=== PATIENT | female | born 1995 | race Caucasian/White ===

== ENCOUNTER 2018-05-03 11:58 | Emergency (ER) | payer OTHER ==
[2018-05-03 12:07] VITALS: BP 153/106; PULSE 101; RESP 18; TEMP 98.2
== END 2018-05-03 12:29 | disposition home or self-care (01) ==
LOC: EC 11:58
DX: Z02.89 Encounter for other administrative examinations (principal)

== ENCOUNTER 2020-11-18 18:35 | Emergency (ER) | payer OTHER ==
--- NOTE | 2020-11-18 19:26 | ED ---
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 Patient has no open wounds or sores. Patient is not 100% sure got in her eye. Patient denies any other problems at this time. Patient has no history of hepatitis or AIDS patient does not know if he had a hepatitis B vaccination - Related Data Home Medications Medication Instructions Recorded Confirmed No Known Home Medications 05/03/18 05/03/18 Allergies Allergy/AdvReac Type Severity Reaction Status Date / Time Penicillins Allergy Rash/Hives Verified 05/03/18 12:15 Review of Systems ROS Statement: Those systems with pertinent positive or pertinent negative responses have been documented in the HPI. ROS Other: All systems not noted in ROS Statement are negative. Past Medical History Past Medical History: No Reported History History of Any Multi-Drug Resistant Organisms: None Reported Past Surgical History: No Surgical Hx Reported Past Psychological History: No Psychological Hx Reported Past Alcohol Use History: None Reported Past Drug Use History: None Reported General Exam - General Exam Comments Initial Comments: GENERAL Patient is well-developed and well-nourished. Patient is in mild distress. EYES Patient's pupils are equal and round. Extraocular motion is intact. Conjunctiva is not red or irritated. SKIN Patient has no obvious open wounds or sores. NEURO The patient is alert and oriented 3 PYSCH Patient has normal interpersonal interactions. MUSCULOSKELETAL All 4 extremities have full range of motion. Limitations: no limitations Medical Decision Making - Lab Data Lab Results 11/18/20 11/18/20 Range/Units 18:52 18:52 Hep Bs Antigen Nonreactive (Nonreactive) Hep Bs Antibody Reactive A (Nonreactive) Hep C IgG Ab Nonreactive (Nonreactive) HIV-1 Antibody Non-Reactive (Non-Reactive) HIV Ag/Ab Interpret HIV p24 Antibody Non-Reactive (Non-Reactive) HIV-2 Antibody Non-Reactive (Non-Reactive) HIV P24 Antigen Non-Reactive (Non-Reactive) Disposition Clinical Impression: Exposure to body fluid Disposition: HOME SELF-CARE Instructions (If sedation given, give patient instructions): Body Substance Exposure (ED) Is patient prescribed a controlled substance at d/c from ED?: No Referrals: None,Stated [Primary Care Provider] - 1-2 days
[2020-11-19 07:37] LABS: Hepatitis B Surface Antibody Reactive (Nonreactive); Hepatitis B Surface Antigen Nonreactive (Nonreactive); Hepatitis C IgG Antibody Nonreactive (Nonreactive)
[2020-11-19 09:01] LABS: HIV 2 AB Non-Reactive (Non-Reactive); HIV AB P24 Non-Reactive (Non-Reactive); HIV P24 AG Non-Reactive (Non-Reactive)
== END 2020-11-18 19:13 | disposition home or self-care (01) ==
LOC: EC 18:35
DX: Z77.21 Contact with and (suspected) exposure to potentially hazardous body fluids (principal)
CPT/HCPCS: 36415; 86706; 86803; 87340; 87390; 99283

== ENCOUNTER 2021-08-06 19:47 | Inpatient (IN) | payer BC ==
[2021-08-06] MEDS ORDERED: methylPREDNISolone SOD SUCCI 125 MG/2 ML VIAL IV STA (20:22)
[2021-08-06] MEDS ORDERED: MAGNESIUM SULFATE-D5W PMX 1 GM in DEXTROSE/WATER 1 100ML.BAG IVPB STA (20:22)
[2021-08-06] MEDS ORDERED: ALBUTEROL NEBULIZED 2.5 MG/3 ML INHALATION STA (20:22)
[2021-08-06] MEDS ORDERED: SODIUM CHLORIDE 0.9% 1,000 ML IV STA (20:22)
[2021-08-06] MEDS ORDERED: IPRATROPIUM 0.5 MG/2.5 ML NEBU INHALATION STA (20:22)
--- NOTE | 2021-08-06 21:00 | ED ---
General Adult HPI - General Chief complaint: Shortness of Breath Stated complaint: Difficulty Breathing, Cough Time Seen by Provider: 08/06/21 20:19 Source: patient, RN notes reviewed, old records reviewed Mode of arrival: ambulatory - History of Present Illness Initial comments: 26-year-old female history of asthma presents for evaluation of increased cough and dyspnea. Patient's symptoms initially began yesterday. She had used albuterol earlier this morning and then her symptoms improved. About 90 minutes prior to arrival she had worsening dyspnea hasn't taken her rescue inhaler as well as vials of albuterol prior to arrival with only minimal improvement. No fever. She reports some chest pain which is worse with cough. No lower extremity pain or swelling. No recent sick contacts. No known triggers. - Related Data Home Medications Medication Instructions Recorded Confirmed Elinest 0.3-30mg-Mcg Tab 1 tab PO DAILY 08/06/21 08/06/21 Allergies Allergy/AdvReac Type Severity Reaction Status Date / Time Penicillins Allergy Rash/Hives Verified 08/06/21 22:26 Review of Systems ROS Statement: Those systems with pertinent positive or pertinent negative responses have been documented in the HPI. ROS Other: All systems not noted in ROS Statement are negative. Past Medical History Past Medical History: Asthma Additional Past Medical History / Comment(s): asthma to bronchitis, heart murmur History of Any Multi-Drug Resistant Organisms: None Reported Past Surgical History: No Surgical Hx Reported Past Psychological History: Anxiety Smoking Status: Never smoker Past Alcohol Use History: None Reported Past Drug Use History: None Reported General Exam General appearance: alert, in no apparent distress Head exam: Present: atraumatic, normocephalic Eye exam: Present: normal appearance, PERRL ENT exam: Present: normal exam Neck exam: Absent: tenderness, meningismus Respiratory exam: Present: respiratory distress, rhonchi, accessory muscle use, decreased breath sounds, other (Bronchospastic cough) Cardiovascular Exam: Present: normal rhythm, tachycardia GI/Abdominal exam: Present: soft. Absent: distended, tenderness, guarding Extremities exam: Present: normal inspection, normal capillary refill. Absent: pedal edema, calf tenderness Neurological exam: Present: alert, oriented X3, CN II-XII intact. Absent: motor sensory deficit Psychiatric exam: Present: anxious Skin exam: Present: warm, intact. Absent: cyanosis Course Vital Signs 08/06/21 08/06/21 08/06/21 19:54 20:30 20:34 Temperature 99.3 F Pulse Rate 162 H 160 H Respiratory 22 26 H 34 H Rate Blood Pressure 136/76 O2 Sat by Pulse 97 Oximetry 08/06/21 20:55 Temperature Pulse Rate 164 H Respiratory 32 H Rate Blood Pressure O2 Sat by Pulse Oximetry - Reevaluation(s) Reevaluation #1: 08/06/21 22:23 I did discuss case with Dr. Campbell regarding the arrhythmia and the possibility of atrial flutter with 21 conduction he does recommend verapamil IV 2.5 mg per dose for a total of 7.5 mg IV , if this does not work that he recommends amiodarone drip. Reevaluation #2: 08/06/21 22:[address] Cuello who will admit, he is aware of the ant iarrhythmic medications recommended by cardiology. EKG Findings - EKG Comments: EKG Findings:: EKG: Narrow complex tachycardia rate of 156, short ND interval versus atrial flutter QRS duration 74, QTC 379. Repeat EKG at 2057, no complex tachycardia rate of 158, possible atrial flutter with 21 conduction, QRS duration 75, QTC 388. Medical Decision Making - Medical Decision Making 26-year-old female presenting with severe dyspnea, patient is in distress upon arrival with minimal air entry, bronchospastic cough. She is tachycardic 150- 170. She does maintain her oxygenation. She has a respiratory rate of 40. She's given albuterol, Atrovent, IV steroids, IV magnesium and IV fluids. Her respiratory status does improve while emergency department but she remains in a sterile complex tachycardia at a rate in the 150s. Her workup including CBC, CMP, d-dimer and troponin is unremarkable. Her viral swabs are pending. Her chest x-ray is negative for pneumothorax or acute findings. She will be admitted to [facility] monitored on telemetry, treated for asthma exacerbation and arrhythmia. - Lab Data Result diagrams: 08/06/21 20:46 08/06/21 20:46 Lab Results 08/06/21 08/06/21 08/06/21 Range/Units 20:46 20:46 20:46 WBC 10.5 (3.8-10.6) k/uL RBC 4.22 (3.80-5.40) m/uL Hgb 13.6 (11.4-16.0) gm/dL Hct 40.2 (34.0-46.0) % MCV 95.1 (80.0-100.0) fL MCH 32.1 (25.0-35.0) pg MCHC 33.8 (31.0-37.0) g/dL RDW 12.5 (11.5-15.5) % Plt Count 280 (150-450) k/uL MPV 8.1 Neutrophils % 88 % Lymphocytes % 6 % Monocytes % 5 % Eosinophils % 0 % Basophils % 0 % Neutrophils # 9.3 H (1.3-7.7) k/uL Lymphocytes # 0.6 L (1.0-4.8) k/uL Monocytes # 0.5 (0-1.0) k/uL Eosinophils # 0.0 (0-0.7) k/uL Basophils # 0.0 (0-0.2) k/uL PT 10.6 (9.0-12.0) sec INR 1.0 (<1.2) APTT 24.6 (22.0-30.0) sec D-Dimer 0.31 (<0.60) mg/L FEU Sodium 136 L (137-145) mmol/L Potassium 3.6 (3.5-5.1) mmol/L Chloride 103 (98-107) mmol/L Carbon Dioxide 22 (22-30) mmol/L Anion Gap 11 mmol/L BUN 9 (7-17) mg/dL Creatinine 0.72 (0.52-1.04) mg/dL Est GFR (CKD-EPI)AfAm >90 (>60 ml/min/1.73 sqM) Est GFR (CKD-EPI)NonAf >90 (>60 ml/min/1.73 sqM) Glucose 121 H (74-99) mg/dL Plasma Lactic Acid Benjamin (0.7-2.0) mmol/L Calcium 8.8 (8.4-10.2) mg/dL Magnesium 1.9 (1.6-2.3) mg/dL Total Bilirubin 0.2 (0.2-1.3) mg/dL AST 25 (14-36) U/L ALT 20 (4-34) U/L Alkaline Phosphatase 56 (38-126) U/L Troponin I (0.000-0.034) ng/mL Total Protein 7.1 (6.3-8.2) g/dL Albumin 4.3 (3.5-5.0) g/dL 08/06/21 08/06/21 Range/Units 20:46 20:46 WBC (3.8-10.6) k/uL RBC (3.80-5.40) m/uL Hgb (11.4-16.0) gm/dL Hct (34.0-46.0) % MCV (80.0-100.0) fL MCH (25.0-35.0) pg MCHC (31.0-37.0) g/dL RDW (11.5-15.5) % Plt Count (150-450) k/uL MPV Neutrophils % % Lymphocytes % % Monocytes % % Eosinophils % % Basophils % % Neutrophils # (1.3-7.7) k/uL Lymphocytes # (1.0-4.8) k/uL Monocytes # (0-1.0) k/uL Eosinophils # (0-0.7) k/uL Basophils # (0-0.2) k/uL PT (9.0-12.0) sec INR (<1.2) APTT (22.0-30.0) sec D-Dimer (<0.60) mg/L FEU Sodium (137-145) mmol/L Potassium (3.5-5.1) mmol/L Chloride (98-107) mmol/L Carbon Dioxide (22-30) mmol/L Anion Gap mmol/L BUN (7-17) mg/dL Creatinine (0.52-1.04) mg/dL Est GFR (CKD-EPI)AfAm (>60 ml/min/1.73 sqM) Est GFR (CKD-EPI)NonAf (>60 ml/min/1.73 sqM) Glucose (74-99) mg/dL Plasma Lactic Acid Benjamin 2.5 H* (0.7-2.0) mmol/L Calcium (8.4-10.2) mg/dL Magnesium (1.6-2.3) mg/dL Total Bilirubin (0.2-1.3) mg/dL AST (14-36) U/L ALT (4-34) U/L Alkaline Phosphatase (38-126) U/L Troponin I <0.012 (0.000-0.034) ng/mL Total Protein (6.3-8.2) g/dL Albumin (3.5-5.0) g/dL Critical Care Time Critical Care Time: Yes Total Critical Care Time: 35 Disposition Clinical Impression: Asthma with acute exacerbation, Tachyarrhythmia, Atrial flutter Disposition: ADMITTED IP TO THIS [facility] Condition: Stable Is patient prescribed a controlled substance at d/c from ED?: No Referrals: Osman Boggs MD [Primary Care Provider] - 1-2 days Time of Disposition: 22:25
[2021-08-06 21:06] LABS: ALT 20 U/L (4-34); AST 25 U/L (14-36); African American GFR (CKD) >90 (>60 ml/min/1.73 sqM); Albumin 4.3 g/dL (3.5-5.0); Alkaline Phosphatase 56 U/L (38-126); Anion Gap 11 mmol/L; Blood Urea Nitrogen 9 mg/dL (7-17); Calcium 8.8 mg/dL (8.4-10.2); Carbon Dioxide 22 mmol/L (22-30); Chloride 103 mmol/L (98-107); Glucose 121 mg/dL (74-99); Magnesium 1.9 mg/dL (1.6-2.3); Non-African American GFR(CKD) >90 (>60 ml/min/1.73 sqM); Potassium 3.6 mmol/L (3.5-5.1); Sodium 136 mmol/L (137-145); Total Bilirubin 0.2 mg/dL (0.2-1.3); Total Protein 7.1 g/dL (6.3-8.2)
[2021-08-06 21:10] LABS: Basophils % (A) 0 %; Eosinophils % (A) 0 %; HCT 40.2 % (34.0-46.0); HGB 13.6 gm/dL (11.4-16.0); Lymphocytes # (A) 0.6 k/uL (1.0-4.8); Lymphocytes % (A) 6 %; MCH 32.1 pg (25.0-35.0); MCHC 33.8 g/dL (31.0-37.0); MCV 95.1 fL (80.0-100.0); Mean Platelet Volume 8.1; Monocytes # (A) 0.5 k/uL (0-1.0); Monocytes % (A) 5 %; Neutrophils # (A) 9.3 k/uL (1.3-7.7); Neutrophils % (A) 88 %; Platelet Count 280 k/uL (150-450); RBC 4.22 m/uL (3.80-5.40); RDW 12.5 % (11.5-15.5); WBC 10.5 k/uL (3.8-10.6)
[2021-08-06 21:18] LABS: Partial Thromboplastin Time 24.6 sec (22.0-30.0); Prothrombin Time 10.6 sec (9.0-12.0)
--- NOTE | 2021-08-06 21:40 | XR ---
EXAMINATION TYPE: XR chest 1V portable DATE OF EXAM: 08/06/2021 9:23 PM COMPARISON: None TECHNIQUE: XR chest 1V portable Portable AP radiograph of the chest. CLINICAL INDICATION:Female, 26 years old with history of danish; FINDINGS: Lungs/Pleura: There is no evidence of pleural effusion, focal consolidation, or pneumothorax. Pulmonary vascularity: Unremarkable. Heart/mediastinum: Cardiomediastinal silhouette is unremarkable. Musculoskeletal: No acute osseous pathology. IMPRESSION: No acute cardiopulmonary disease/process.
[2021-08-06] MEDS ORDERED: DILTIAZEM DRIP BOLUS FROM BAG 1 MG SOLN IV ONE ×2 (22:01→23:55)
[2021-08-06] MEDS ORDERED: VERAPAMIL 2.5 MG/ML 2 ML AMP IVP STA ×2 (22:11→22:49)
[2021-08-06] MEDS ORDERED: NALOXONE 0.4 MG/ML 1 ML VIAL IV PRN (22:13)
[2021-08-06] MEDS ORDERED: DILTIAZEM 125 MG in SODIUM CHLORIDE 0.9% 100 ML IV SCH ×2 (22:15→23:45)
[2021-08-06] MEDS ORDERED: ALBUTEROL NEBULIZED 2.5 MG/3 ML INHALATION PRN (22:15)
[2021-08-06] MEDS ORDERED: LORazepam 2 MG/ML INJ IV STA ×2 (22:28→22:49)
[2021-08-06] MEDS: SODIUM CHLORIDE 0.9% 1,000 ML IV SCH (23:03)
[2021-08-06] MEDS ORDERED: ADENOSINE 3 MG/ML 2 ML VIAL IVP STA ×2 (23:33→23:55)
[2021-08-07] MEDS ORDERED: ALBUTEROL HFA INHALER INHALATION PRN (00:13)
--- NOTE | 2021-08-07 01:32 | P.HPIM ---
History of Present Illness H&P Date: 08/06/21 Chief Complaint: Shortness of breath 26-year-old female with history of intermittent asthma Patient comes in due to sudden onset shortness of breath not responding to nebulizers at home she also felt that her heart was racing denies any associated chest pain dizziness lightheadedness nausea vomiting. 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 Denies any changes in her medications denies any new [id number] products denies any recent travel or hospitalization or trauma. Denies any cardiac history. In the ED she was found to have SVT case discussed with cardiac G initially was thought to be atrial flutter and recommended to start boluses of verapamil and then cardiology cold back and decided to attempt adenosine and then Cardizem drip Chest x-ray no acute pathology Blood work significant for lactic acidosis and hyponatremia Covid test positive, patient denies any upper respiratory infection like symptoms congestion or body aches fevers or chills Review of Systems Pertinent positives as noted in HPI. All other systems were reviewed and are negative Past Medical History Past Medical History: Asthma Additional Past Medical History / Comment(s): asthma to bronchitis, heart murmur History of Any Multi-Drug Resistant Organisms: None Reported Past Surgical History: No Surgical Hx Reported Past Psychological History: Anxiety Smoking Status: Never smoker Past Alcohol Use History: None Reported Past Drug Use History: None Reported - Past Family History Family Family Medical History: No Reported History Medications and Allergies Home Medications Medication Instructions Recorded Confirmed Type Elinest 0.3-30mg-Mcg Tab 1 tab PO DAILY 08/06/21 08/06/21 History Allergies Allergy/AdvReac Type Severity Reaction Status Date / Time Penicillins Allergy Rash/Hives Verified 08/06/21 22:26 Physical Exam Vitals: Vital Signs Temp Pulse Resp BP Pulse Ox 08/06/21 20:55 164 H 32 H 08/06/21 20:34 160 H 34 H 08/06/21 20:30 26 H 08/06/21 19:54 99.3 F 162 H 22 136/76 97 Intake and Output 08/06/21 08/06/21 08/06/21 06:59 14:59 22:59 Other: Weight 72.575 kg Constitutional: No acute distress, conversant, pleasant Eyes: Anicteric sclerae, moist conjunctiva, Pupils equal round reactive to light ENMT: NC/AT Oropharynx clear, no erythema, or exudates Neck: Supple, FROM, no masses, or JVD No carotid bruits No thyromegaly Lungs: Clear to auscultation Clear to percussion Normal respiratory effort, no accessory muscle use Cardiovascular: Heart tachycardia Systolic murmurs, no gallops, or rubs No peripheral edema Abdominal: Soft Nontender, no guarding, rebound or rigidity Abdomen moving with respiration Normoactive bowel sounds No hepatomegaly, No splenomegaly No palpable mass No abdominal wall hernia noted Skin: Normal temperature, tone, texture, turgor No induration No subcutaneous nodules No rash, lesions No ulcers Extremities: No digital cyanosis No clubbing Pedal pulses intact and symmetrical Radial pulses intact and symmetrical No calf tenderness Psychiatric: Alert and oriented to person, place and time Appropriate affect fair judgement Neuro Muscles Strength 5/5 in all 4 extremities Sensation to light touch grossly present throughout Cranial nerves II-XII grossly intact No focal sensory deficits Lymphatics: no palpable cervical or supraclavicular , or inguinal lymph nodes Results CBC & Chem 7: 08/06/21 20:46 08/06/21 20:46 Labs: Abnormal Lab Results - Last 24 Hours (Table) 08/06/21 08/06/21 08/06/21 Range/Units 20:46 20:46 20:46 Neutrophils # 9.3 H (1.3-7.7) k/uL Lymphocytes # 0.6 L (1.0-4.8) k/uL Sodium 136 L (137-145) mmol/L Glucose 121 H (74-99) mg/dL Plasma Lactic Acid Benjamin 2.5 H* (0.7-2.0) mmol/L Assessment and Plan Assessment: Acute asthma exacerbation possible secondary to underlying Covid infection History of intermittent asthma Tachycardia arrhythmia Lactic acidosis Plan Cardiology consult supplemental oxygen as needed Systemic steroids 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
[2021-08-07 01:35] LABS: Appearance,Urine Cloudy (Clear); Bacteria,Urine Rare /hpf; Bilirubin,Urine Negative (Negative); Blood,Urine Negative (Negative); Color,Urine Light Yellow; Glucose,Urine (UA) Negative (Negative); Ketones,Urine Negative (Negative); Leukocyte Esterase,Urine Negative (Negative); Mucus,Urine Rare /hpf; Nitrite,Urine Negative (Negative); PH, Urine 6.5 (5.0-8.0); Protein,Urine Negative (Negative); RBC,Urine 1 /hpf (0-5); Specific Gravity,Urine 1.014 (1.001-1.035); Squamous Epithelial Cell,Urine 6 /hpf (0-4); Transitional Epi Cells,Urine <1 /hpf (0-1); Urobilinogen,Urine <2.0 mg/dL (<2.0); WBC,Urine 1 /hpf (0-5)
[2021-08-07] MEDS: methylPREDNISolone SOD SUCCI 125 MG/2 ML VIAL IV SCH ×3 (04:51→20:11)
[2021-08-07] MEDS: ALBUTEROL HFA INHALER INHALATION SCH ×4 (07:23→18:28)
[2021-08-07] MEDS: HEPARIN SODIUM,PORCINE/PF 5,000 UNIT/0.5 ML SYRINGE SQ SCH ×2 (08:50→16:09)
--- NOTE | 2021-08-07 09:57 | CA ---
Transthoracic Echo Report Name: Charissa Esteves Age: 26 Gender: F : 1995 Exam Date: 08/07/2021 07:21 Exam Location: [facility] Ht (in): 67 Wt (lb): 160 Ordering Physician: Grisel Cuello MD Attending/Referring Phys: [id number], [place] [employer] Retreader Kathi Campos RDCS Procedure CPT: Indications: svt Cardiac Hx: Technical Quality: Good Contrast 1: Total Dose (mL): Contrast 2: Total Dose (mL): MEASUREMENTS (Male / Female) Normal Values 2D ECHO LV Diastolic Diameter PLAX 3.7 cm 4.2 - 5.9 / 3.9 - 5.3 cm LV Systolic Diameter PLAX 2.2 cm IVS Diastolic Thickness 0.7 cm 0.6 - 1.0 / 0.6 - 0.9 cm LVPW Diastolic Thickness 0.7 cm 0.6 - 1.0 / 0.6 - 0.9 cm LV Relative Wall Thickness 0.4 RV Internal Dim ED PLAX 1.6 cm LA Volume 26.2 cm??? 18 - 58 / 22 - 52 cm??? M-MODE Aortic Root Diameter MM 2.8 cm LA Systolic Diameter MM 2.3 cm LA Ao Ratio MM 0.8 MV E Point Septal Separation 0.6 cm AV Cusp Separation MM 1.7 cm DOPPLER AV Peak Velocity 114.6 cm/s AV Peak Gradient 5.3 mmHg MV Area PHT 3.8 cm??? Mitral E Point Velocity 122.7 cm/s Mitral A Point Velocity 59.7 cm/s Mitral E to A Ratio 2.1 MV Deceleration Time 198.1 ms MV E' Velocity 13.8 cm/s Mitral E to MV E' Ratio 8.9 TR Peak Velocity 191.8 cm/s TR Peak Gradient 14.7 mmHg Right Ventricular Systolic Press 19.7 mmHg FINDINGS Left Ventricle Normal Left ventricular size, wall thickness, systolic function with no obvious regional wall motion abnormalities. Normal Left ventricular diastolic filling pattern. Left ventricular ejection fraction is estimated at 55-60_ %. Right Ventricle The right ventricle is normal in size and function. Right Atrium The right atrium is normal in size. Left Atrium The left atrium is normal in size. Mitral Valve Structurally normal mitral valve without significant stenosis or prolapse. There is trace mitral regurgitation. Aortic Valve Structurally normal aortic valve without significant sclerosis or stenosis. There is no aortic regurgitation. Tricuspid Valve Structurally normal tricuspid valve without significant stenosis. Pulmonary artery systolic pressure is normal. Trace tricuspid regurgitation. Pulmonic Valve Structurally normal pulmonic valve without significant stenosis. There is no pulmonic regurgitation. Pericardium Normal pericardium without effusion. Aorta Normal aortic root dimension. CONCLUSIONS Normal LV size and systolic function Previewed by: Dr. Nathaniel Collins MD (Electronically Signed) Final Date: 07 August 2021 09:56
--- NOTE | 2021-08-07 13:09 | P.CRDCN ---
History of Present Illness History of present illness: HISTORY OF PRESENTING ILLNESS This is a pleasant 26-year-old female past medical history significant for Asthma. She does not follow with a data analytics developer. We have been asked to see in consultation for arrhythmia. Patient presents to the emergency department for worsening shortness of breath, she states that she was having asthma attacks at home. She progressively more short of breath and called EMS. She was found to be positive for COVID-19. She was tachycardic on admission, EKG and rhythm strips reveals ventricular tachycardia. She was initially given Verapamil total IV 7.5 mg, with no improvement. She was then given 6 mg and 12 mg of adenosine. And then started on Cardizem drip. Her heart rates have improved. Sinus rhythm HR 90s-100s. Her breathing has improved. She denies any chest pain, lightheadedness, dizziness, syncope or near syncope. She denies a cough, fever, chills, night sweats, decreased appetite. She denies any history of hypertension, CAD, hyperlipidemia, diabetes. Family history includes her family has a history of hypertension and diabetes. She denies any tobacco use. DIAGNOSTICS EKG revealed sinus tachycardia heart rate in the 150s. No acute ST is to abnormalities chest acute ischemia Chest xray no acute cardiopulmonary process. Laboratory reviewed, lactic elevated at 4.4, troponin negative, CBC unremarkable, sodium 136, d-dimer negative, potassium 3.6, BUN 9, serum creatinine 0.7, magnesium 1.9, TSH within normal limits Current home cardiac medications include Elinest, PRN albuterol REVIEW OF SYSTEMS At the time of my exam: CONSTITUTIONAL: Denies fever or chills. CARDIOVASCULAR: Denies chest pain, +shortness of breath, orthopnea, PND or palpitations. RESPIRATORY: Denies cough. GASTROINTESTINAL: Denies abdominal pain, diarrhea, constipation, nausea or vomiting. MUSCULOSKELETAL: Denies myalgias. NEUROLOGIC: Denies numbness, tingling, headacbe or weakness. ENDOCRINE: Denies fatigue, weight change, polydipsia or polyurina. GENITOURINARY: Denies burning, hematuria or urgency with micturation. HEMATOLOGIC: Denies history of anemia or bleeding. PHYSICAL EXAMINATION Blood pressure 122/66, heart rate 98, afebrile, saturations 98% on room air CONSTITUTIONAL: No apparent distress. HEENT: Head is normocephalic. Pupils are equal, round. Sclerae anicteric. Mucous membranes of the mouth are moist. No JVD. No carotid bruit. CHEST EXAMINATION: Lungs are clear to auscultation. No chest wall tenderness is noted on palpation or with deep breathing. HEART EXAMINATION: Regular rate and rhythm. S1, S2 heard. No murmurs, gallops or rub. ABDOMEN: Soft, nontender. Positive bowel sounds. EXTREMITIES: 2+ peripheral pulses, no lower extremity edema and no calf tenderness. NEUROLOGIC EXAMINATION: Patient is awake, alert and oriented x3. ASSESSMENT Sinus tachycardia, SVT Shortness of breath Asthma exacerbation Covid-19 Infection PLAN Telemetry strips and EKG reviewed no evidence of atrial flutter Stop Cardizem Asthma exacerbation and Covid management per primary. Echocardiogram revealed EF of 5560 %, no significant wall motion abnormalities, trace mitral regurgitation, trace tricuspid regurgitation. No further changes from a cardiology perspective, we will follow the patient as needed. Please re-consult if needed. Nurse practitioner note has been reviewed by physician. Signing provider agrees with the documented findings, assessment, and plan of care. Past Medical History Past Medical History: Asthma Additional Past Medical History / Comment(s): asthma to bronchitis, heart murmur History of Any Multi-Drug Resistant Organisms: None Reported Past Surgical History: No Surgical Hx Reported Past Psychological History: Anxiety Smoking Status: Never smoker Past Alcohol Use History: None Reported Past Drug Use History: None Reported - Past Family History Family Family Medical History: No Reported History Medications and Allergies Home Medications Medication Instructions Recorded Confirmed Type Elinest 0.3-30mg-Mcg Tab 1 tab PO DAILY 08/06/21 08/06/21 History Allergies Allergy/AdvReac Type Severity Reaction Status Date / Time Penicillins Allergy Rash/Hives Verified 08/06/21 22:26 Physical Exam Vitals: Vital Signs Temp Pulse Resp BP Pulse Ox 08/07/21 06:00 94 16 100/53 98 08/07/21 05:00 98.2 F 94 16 118/54 98 08/07/21 04:00 105 H 16 110/50 98 08/07/21 03:00 112 H 16 109/51 98 08/07/21 02:00 121 H 16 112/58 98 08/07/21 01:00 128 H 16 127/66 98 08/07/21 00:34 130 H 3 L 123/74 97 08/06/21 23:01 142 H 18 117/57 98 08/06/21 22:01 164 H 20 127/62 98 08/06/21 21:01 171 H 22 129/63 98 08/06/21 20:55 164 H 32 H 08/06/21 20:34 160 H 34 H 08/06/21 20:30 26 H 08/06/21 20:01 162 H 26 H 125/74 97 08/06/21 19:54 99.3 F 162 H 22 136/76 97 Intake and Output 08/06/21 08/07/21 08/07/21 22:59 06:59 14:59 Other: Weight 72.575 kg Results 08/06/21 20:46 08/06/21 20:46 Cardiac Enzymes 08/06/21 08/06/21 Range/Units 20:46 20:46 AST 25 (14-36) U/L Troponin I <0.012 (0.000-0.034) ng/mL Coagulation 08/06/21 Range/Units 20:46 PT 10.6 (9.0-12.0) sec APTT 24.6 (22.0-30.0) sec CBC 08/06/21 Range/Units 20:46 WBC 10.5 (3.8-10.6) k/uL RBC 4.22 (3.80-5.40) m/uL Hgb 13.6 (11.4-16.0) gm/dL Hct 40.2 (34.0-46.0) % Plt Count 280 (150-450) k/uL Comprehensive Metabolic Panel 08/06/21 Range/Units 20:46 Sodium 136 L (137-145) mmol/L Potassium 3.6 (3.5-5.1) mmol/L Chloride 103 (98-107) mmol/L Carbon Dioxide 22 (22-30) mmol/L BUN 9 (7-17) mg/dL Creatinine 0.72 (0.52-1.04) mg/dL Glucose 121 H (74-99) mg/dL Calcium 8.8 (8.4-10.2) mg/dL AST 25 (14-36) U/L ALT 20 (4-34) U/L Alkaline Phosphatase 56 (38-126) U/L Total Protein 7.1 (6.3-8.2) g/dL Albumin 4.3 (3.5-5.0) g/dL Current Medications Generic Name Dose Route Start Last Admin Trade Name Deana PRN Reason Stop Dose Admin Albuterol Sulfate 2 puff 08/07/21 08:00 08/07/21 07:23 Albuterol Hfa Inhaler INHALATION 2 puff RT-QID RAGHU Administration Albuterol Sulfate 2 puff 08/07/21 00:13 Albuterol Hfa Inhaler INHALATION RT-QID PRN Shortness Of Breath Or Wheezing Heparin Sodium (Porcine) 5,000 unit 08/07/21 08:00 Heparin Sodium,Porcine/Pf 5,000 Unit/0.5 Ml Syringe SQ Q8HR RAGHU Sodium Chloride 1,000 mls @ 75 mls/hr 08/06/21 22:15 08/06/21 23:03 Saline 0.9% IV 75 mls/hr .[id number] RAGHU Administration Diltiazem HCl 125 mg/ Sodium 125 mls @ 7.5 mls/hr 08/06/21 23:45 08/07/21 00:37 Chloride IV 7.5 mg/hr .[id number] RAGHU 7.5 mls/hr Administration 7.5 MG/HR Methylprednisolone Sodium Succinate 60 mg 08/07/21 05:00 08/07/21 04:51 Methylprednisolone Sod Succi 125 Mg/2 Ml Vial IV 60 mg Q8H RAGHU Administration Naloxone HCl 0.2 mg 08/06/21 22:13 Naloxone 0.4 Mg/Ml 1 Ml Vial IV Q2M PRN Opioid Reversal Intake and Output 08/06/21 08/07/21 08/07/21 22:59 06:59 14:59 Other: Weight 72.575 kg 08/06/21 20:46 08/06/21 20:46
--- NOTE | 2021-08-07 13:34 | P.PN ---
Subjective Progress Note Date: 08/07/21 History of Present Illness History of present illness: HISTORY OF PRESENTING ILLNESS This is a pleasant 26-year-old female past medical history significant for Asthma. 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 We have been asked to see in consultation for arrhythmia. Patient presents to the emergency department for worsening shortness of breath, she states that she was having asthma attacks at home. She progressively more short of breath and called EMS. She was found to be positive for COVID-19. She was tachycardic on admission, EKG and rhythm strips reveals ventricular tachycardia. She was initially given Verapamil total IV 7.5 mg, with no improvement. She was then given 6 mg and 12 mg of adenosine. And then started on Cardizem drip. Her heart rates have improved. Sinus rhythm HR 90s-100s. Her breathing has improved. She denies any chest pain, li ghtheadedness, dizziness, syncope or near syncope. She denies a cough, fever, chills, night sweats, decreased appetite. She denies any history of hypertension, CAD, hyperlipidemia, diabetes. Family history includes her family has a history of hypertension and diabetes. She denies any tobacco use. Interval history: Patient was examined at the bedside. She stated that she is feeling better today. She still slightly tachycardic heart rate in the 90s. Sinus tachycar deng. Patient denies any chest pain or shortness of breath. Patient was evaluated by cardiology Cardizem was discontinued Physical examination: General: non toxic, no distress, appears at stated age Derm: warm, dry Head: atraumatic, normocephalic, symmetric Eyes: EOMI, no lid lag, anicteric sclera Mouth: no lip lesion, mucus membranes moist Cardiovascular: S1S2 slightly tachycardic, no murmur, positive posterior tibial pulse bilateral, Lungs: CTA bilateral, no rhonchi, no rales , no accessory muscle use Abdominal: soft, nontender to palpation, no guarding, no appreciable organomegaly Ext: no gross muscle atrophy, no edema, no contractures Neuro: CN II-XI grossly intact, no focal neuro deficits Psych: Alert, oriented, appropriate affect Assessment and plan: #Acute asthma exacerbation secondary to COVID 19 infection -Patient in room air -Chest x-ray negative for pneumonia -Resume IV steroid -Bronchodilator treatments -Troponins and airborne isolation -Pending pulmonary evaluation #Sinus tachycardia/SVT -Per cardiology note no evidence of atrial flutter. -2-D echo showed EF 55-60% no significant wall motion abnormality trace mitral regurgitation, trace tricuspid regurgitation. -Cardiology DC'd Cardizem -Cardiology signed off DVT prophylaxis subcutaneous heparin. Full code Objective - Vital Signs Vital signs: Vital Signs Temp 98.2 F 08/07/21 05:00 Pulse 98 08/07/21 08:55 Resp 18 08/07/21 08:55 BP 122/66 08/07/21 08:55 Pulse Ox 98 08/07/21 08:55 FiO2 Intake & Output 08/06/21 08/07/21 08/07/21 18:59 06:59 18:59 Weight 72.575 kg - Labs CBC & Chem 7: 08/06/21 20:46 08/06/21 20:46 Labs: Abnormal Lab Results - Last 24 Hours (Table) 08/06/21 08/06/21 08/06/21 Range/Units 20:46 20:46 20:46 Neutrophils # 9.3 H (1.3-7.7) k/uL Lymphocytes # 0.6 L (1.0-4.8) k/uL Sodium 136 L (137-145) mmol/L Glucose 121 H (74-99) mg/dL Plasma Lactic Acid Benjamin 2.5 H* (0.7-2.0) mmol/L Urine Appearance (Clear) Ur Squamous Epith Cells (0-4) /hpf Urine Bacteria (None) /hpf Urine Mucus (None) /hpf Coronavirus (PCR) (Not Detectd) 08/06/21 08/07/21 08/07/21 Range/Units 22:32 00:43 00:45 Neutrophils # (1.3-7.7) k/uL Lymphocytes # (1.0-4.8) k/uL Sodium (137-145) mmol/L Glucose (74-99) mg/dL Plasma Lactic Acid Benjamin 4.4 H* (0.7-2.0) mmol/L Urine Appearance Cloudy H (Clear) Ur Squamous Epith Cells 6 H (0-4) /hpf Urine Bacteria Rare H (None) /hpf Urine Mucus Rare H (None) /hpf Coronavirus (PCR) Detected A (Not Detectd) 08/07/21 08/07/21 Range/Units 03:49 07:36 Neutrophils # (1.3-7.7) k/uL Lymphocytes # (1.0-4.8) k/uL Sodium (137-145) mmol/L Glucose (74-99) mg/dL Plasma Lactic Acid Benjamin 3.5 H* 2.3 H* (0.7-2.0) mmol/L Urine Appearance (Clear) Ur Squamous Epith Cells (0-4) /hpf Urine Bacteria (None) /hpf Urine Mucus (None) /hpf Coronavirus (PCR) (Not Detectd)
--- NOTE | 2021-08-07 14:50 | P.CNPUL ---
History of Present Illness Consult date: 08/07/21 Reason for consult: dyspnea, asthma History of present illness: 26-year-old female patient presenting to the emergency department because of worsening shortness of breath. The patient had a sudden onset shortness of breath at home and she did not respond to routine nebulized treatments and she felt that she was getting more tachycardic, and she was having more shortness of breath and her breathing was more labored. At that point, the patient denied having any chest pain. She denies having any nausea vomiting or dizziness or lightheadedness. She was very much concerned and anxious and scared and for that reason she ended up calling EMS and she end up coming into the hospital. Note that the patient is known to have history of chronic bronchial asthma. The patient has mild intermittent bronchial asthma and she does not use any form of maintenance after medications on outpatient basis. In the ED, the patient was found to have an SVT/A. fib flutter. The patient was given adenosine and then Cardizem drip. Note that her blood work showed a white cell count of 10.5 with hemoglobin 13.6 and a platelet count of 280. Normal correlation profile. Electrodes are all within normal limits. Urine is apparently An 0.7, lactic acid level was at 2.5 dropped down to 2.0. Troponins are negative. UA is negative. She end up being positive for COVID 19 infection. Note that the patient denied having any symptoms of nasal congestion, drainage, or any cough or congestion or nausea vomiting or diarrhea. Denies having any fever or c hills. Review of Systems Constitutional: Denies chills, Denies fever Eyes: denies as per HPI, denies blurred vision, denies bulging eye, denies decreased vision, denies diplopia, denies discharge, denies dry eye, denies irritation, denies itching, denies pain, denies photophobia, denies loss of peripheral vision, denies loss of vision, denies tunnel vision/blind spots Ears: deny: decreased hearing, ear discharge, earache, tinnitus Ears, nose, mouth and throat: Reports as per HPI Breasts: absent: as per HPI, change in shape, gynecomastia, masses, nipple d ischarge, pain, skin changes, swelling Cardiovascular: Reports as per HPI, Reports decreased exercise tolerance, Reports dyspnea on exertion Respiratory: Reports cough, Reports dyspnea, Reports wheezing Gastrointestinal: Reports as per HPI Genitourinary: Reports as per HPI Menstruation: Reports as per HPI Musculoskeletal: Reports as per HPI Musculoskeletal: absent: ankle pain, ankle stiffness, ankle swelling Integumentary: Reports as per HPI Neurological: Reports as per HPI Psychiatric: Reports as per HPI Endocrine: Reports as per HPI Hematologic/Lymphatic: Reports as per HPI Allergic/Immunologic: Reports as per HPI Past Medical History Past Medical History: Asthma Additional Past Medical History / Comment(s): asthma to bronchitis, heart murmur History of Any Multi-Drug Resistant Organisms: None Reported Past Surgical History: No Surgical Hx Reported Past Psychological History: Anxiety Smoking Status: Never smoker Past Alcohol Use History: None Reported Past Drug Use History: None Reported - Past Family History Family Family Medical History: No Reported History Medications and Allergies Home Medications Medication Instructions Recorded Confirmed Type Elinest 0.3-30mg-Mcg Tab 1 tab PO DAILY 08/06/21 08/06/21 History Allergies Allergy/AdvReac Type Severity Reaction Status Date / Time Penicillins Allergy Rash/Hives Verified 08/06/21 22:26 Physical Exam Vitals: Vital Signs Temp Pulse Resp BP Pulse Ox 08/07/21 08:55 98 18 122/66 98 08/07/21 06:00 94 16 100/53 98 08/07/21 05:00 98.2 F 94 16 118/54 98 08/07/21 04:00 105 H 16 110/50 98 08/07/21 03:00 112 H 16 109/51 98 08/07/21 02:00 121 H 16 112/58 98 08/07/21 01:00 128 H 16 127/66 98 08/07/21 00:34 130 H 3 L 123/74 97 08/06/21 23:01 142 H 18 117/57 98 08/06/21 22:01 164 H 20 127/62 98 08/06/21 21:01 171 H 22 129/63 98 08/06/21 20:55 164 H 32 H 08/06/21 20:34 160 H 34 H 08/06/21 20:30 26 H 08/06/21 20:01 162 H 26 H 125/74 97 08/06/21 19:54 99.3 F 162 H 22 136/76 97 Intake and Output 06/3008/07/21 08/07/21 22:59 06:59 14:59 Other: Weight 72.575 kg Gen. appearance the patient is calm and comfortable and the patient is currently on room air oxygen with a pulse oximetry of 98% The patient appeared well nourished and normally developed. Vital signs as documented. Head exam is unremarkable. No scleral icterus or corneal arcus noted. Neck is without jugular venous distension, thyromegaly, or carotid bruits. Carotid upstrokes are brisk bilaterally. Lungs are clear to auscultation and percussion. Cardiac exam reveals the PMI to be normally sized and situated. Rhythm is regular. First and second heart sounds normal. No murmurs, rubs or gallops. Abdominal exam reveals normal bowel sounds, no masses, no organomegaly and no aortic enlargement. Extremities are nonedematous and both femoral and pedal pulses are normal. Examination of the skin revealed no evidence of significant rashes, suspicious appearing nevi or other concerning lesions. Neurologically, the patient is awake and alert and the patient does not have any focal neurological deficit. Cranial nerves are essentially intact. Results - Laboratory Findings CBC and BMP: 08/06/21 20:46 08/06/21 20:46 PT/INR, D-dimer PT 10.6 sec (9.0-12.0) 08/06/21 20:46 INR 1.0 (<1.2) 08/06/21 20:46 D-Dimer 0.31 mg/L FEU (<0.60) 08/06/21 20:46 Abnormal lab findings: Abnormal Labs 08/06/21 08/06/21 08/06/21 20:46 20:46 20:46 Neutrophils # 9.3 H Lymphocytes # 0.6 L Sodium 136 L Glucose 121 H Plasma Lactic Acid Benjamin 2.5 H* Urine Appearance Ur Squamous Epith Cells Urine Bacteria Urine Mucus Coronavirus (PCR) 08/06/21 08/07/21 08/07/21 22:32 00:43 00:45 Neutrophils # Lymphocytes # Sodium Glucose Plasma Lactic Acid Benjamin 4.4 H* Urine Appearance Cloudy H Ur Squamous Epith Cells 6 H Urine Bacteria Rare H Urine Mucus Rare H Coronavirus (PCR) Detected A 08/07/21 08/07/21 03:49 07:36 Neutrophils # Lymphocytes # Sodium Glucose Plasma Lactic Acid Benjamin 3.5 H* 2.3 H* Urine Appearance Ur Squamous Epith Cells Urine Bacteria Urine Mucus Coronavirus (PCR) - Diagnostic Findings Chest x-ray: image reviewed Assessment and Plan Plan: Acute Covid 19 infection, the patient has been vaccinated in the past and the patient has received Moderna x2 Acute asthma exacerbation secondary to above. History of mild intermittent bronchial asthma, maintained on albuterol rescue inhaler. The patient was taking Flovent in the past and she has quit her respiratory and corticosteroids for at least 2 years. Her last episode of bronchitis approximately 3 weeks ago where she was given a Z-Kelvin and a 5 day prednisone taper. Tachycardia, questionable SVT at a time of admission, subsequent cardiac rhythm was more consistent with sinus tachycardia. Echo of the heart was completed and the patient has a normal ejection fraction without any acute abnormalities. Mild lactic acidosis Shortness of breath secondary to above History of smoking, quit 2 weeks ago Plan Albuterol HFA 2 puffs by the [id number] Monitor oxygenation IV Solu-Medrol regarding asthma exacerbation 6 mg every 8 hours Transition this patient oral prednisone as of tomorrow IV fluids normal saline at rate of 75 mL an hour Check LDH and CRP D-dimer levels have been low Heparin subcu for DVT prophylaxis Echo results were noted We'll continue to follow
[2021-08-07 16:03] LABS: C Reactive Protein 4.6 mg/dL (<1.0)
[2021-08-07] MEDS: SODIUM CHLORIDE 0.9% 1,000 ML IV SCH (17:12)
[2021-08-08] MEDS: HEPARIN SODIUM,PORCINE/PF 5,000 UNIT/0.5 ML SYRINGE SQ SCH ×2 (00:18→10:12)
[2021-08-08 01:13] VITALS: RESP 16
[2021-08-08] MEDS: methylPREDNISolone SOD SUCCI 125 MG/2 ML VIAL IV SCH (05:32)
[2021-08-08] MEDS: SODIUM CHLORIDE 0.9% 1,000 ML IV SCH (05:33)
[2021-08-08] MEDS: ALBUTEROL HFA INHALER INHALATION SCH ×2 (08:33→11:50)
--- NOTE | 2021-08-08 09:57 | P.PN ---
Subjective Progress Note Date: 08/08/21 26-year-old female patient presenting to the emergency department because of wo rsening shortness of breath. The patient had a sudden onset shortness of breath at home and she did not respond to routine nebulized treatments and she felt that she was getting more tachycardic, and she was having more shortness of breath and her breathing was more labored. At that point, the patient denied having any chest pain. She denies having any nausea vomiting or dizziness or lightheadedness. She was very much concerned and anxious and scared and for that reason she ended up calling EMS and she end up coming into the hospital. Note that the patient is known to have history of chronic bronchial asthma. The patient has mild intermittent bronchial asthma and she does not use any form of maintenance after medications on outpatient basis. In the ED, the patient was found to have an SVT/A. fib flutter. The patient was given adenosine and then Cardizem drip. Note that her blood work showed a white cell count of 10.5 with hemoglobin 13.6 and a platelet count of 280. Normal correlation profile. Electrodes are all within normal limits. Urine is apparently An 0.7, lactic aci d level was at 2.5 dropped down to 2.0. Troponins are negative. UA is negative. She end up being positive for COVID 19 infection. Note that the patient denied having any symptoms of nasal congestion, drainage, or any cough or congestion or nausea vomiting or diarrhea. Denies having any fever or chills. On 2021, the patient's cardiac rhythm remains sinus patient is on room air oxygen. She has no specific complaints. Cough and congestion is improved and she still has some ongoing wheeze related to her asthma exacerbation. She is on IV Solu-Medrol. She is also on albuterol HFA [id number]. Objective - Vital Signs Vital signs: Vital Signs Temp 98.1 F 08/08/21 04:00 Pulse 79 08/08/21 04:00 Resp 16 08/08/21 04:00 BP 125/71 08/08/21 04:00 Pulse Ox 97 08/08/21 08:34 FiO2 Intake & Output 08/07/21 08/08/21 08/08/21 18:59 06:59 18:59 Intake Total 900 240 Balance 900 240 Weight 72.575 kg Intake: Intake, IV Titration 900 Amount Sodium Chloride 0.9% 1, 900 000 ml @ 75 mls/hr IV . [id number] [facility] Rx#:[id number] Oral 240 Other: Voiding Method Toilet Toilet # Voids 2 - Exam Gen. appearance the patient is calm and comfortable and the patient is currently on room air oxygen with a pulse oximetry of 98% The patient appeared well nourished and normally developed. Vital signs as documented. Head exam is unremarkable. No scleral icterus or corneal arcus noted. Neck is without jugular venous distension, thyromegaly, or carotid bruits. Carotid upstrokes are brisk bilaterally. Lungs are clear to auscultation and percussion. Cardiac exam reveals the PMI to be normally sized and situated. Rhythm is regular. First and second heart sounds normal. No murmurs, rubs or gallops. Abdominal exam reveals normal bowel sounds, no masses, no organomegaly and no aortic enlargement. Extremities are nonedematous and both femoral and pedal pulses are normal. Examination of the skin revealed no evidence of significant rashes, suspicious appearing nevi or other concerning lesions. Ne urologically, the patient is awake and alert and the patient does not have any focal neurological deficit. Cranial nerves are essentially intact. - Labs CBC & Chem 7: 08/06/21 20:46 08/06/21 20:46 Labs: Abnormal Lab Results - Last 24 Hours (Table) 08/07/21 Range/Units 15:24 C-Reactive Protein 4.6 H (<1.0) mg/dL Microbiology - Last 24 Hours (Table) 08/07/21 00:45 Blood Culture - Preliminary Blood No Growth after 24 hours 08/07/21 00:35 Blood Culture - Preliminary Blood No Growth after 24 hours Assessment and Plan Plan: Acute Covid 19 infection, the patient has been vaccinated in the past and the patient has received Moderna x2 Acute asthma exacerbation secondary to above, clinically improving History of mild intermittent bronchial asthma, maintained on albuterol rescue inhaler. The patient was taking Flovent in the past and she has quit her respiratory and corticosteroids for at least 2 years. Her last episode of bronchitis approximately 3 weeks ago where she was given a Z-Eklvin and a 5 day prednisone taper. Tachycardia, questionable SVT at a time of admission, subsequent cardiac rhythm was more consistent with sinus tachycardia. Echo of the heart was completed and the patient has a normal ejection fraction without any acute abnormalities. Mild lactic acidosis Shortness of breath secondary to above History of smoking, quit 2 weeks ago Plan The patient can be discharged home today on Symbicort 1604 0.5, 2 puffs twice a day, albuterol HFA on an as-needed basis, albuterol solution 2.5 mg and a nebulizer and a refill should be given to her the time of discharge along with a prednisone burst taper starting with 40 mg to be tapered by 10 mg every 4 days, a total of 16 day course. The patient will see me back in the office in a few weeks time. Her condition is stable for now. ok for discharge. This will be communicated with the primary care team.
[2021-08-08 10:27] VITALS: BP 123/83; PULSE 74; TEMP 98.6
--- NOTE | 2021-08-08 12:04 | P.DS ---
Providers Date of admission: 08/06/21 22:13 Expected date of discharge: 08/08/21 Attending physician: Grisel Cuello MD Consults: 08/06/21 22:13 Consult Physician Routine Consulting Provider: Nathaniel Collins Consult Reason/Comments: Arrhythmia Do you want consulting provider notified?: Yes 08/07/21 11:37 Consult Physician Routine Consulting Provider: Micheal Muñoz Consult Reason/Comments: acute asthma exacerbation+ covid19 Do you want consulting provider notified?: Yes Primary care physician: Osman [facility] Course: History of Present Illness History of present illness: HISTORY OF PRESENTING ILLNESS This is a pleasant 26-year-old female past medical history significant for Asthma. She does not follow with a management trainee. We have been asked to see in consultation for arrhythmia. Patient presents to the emergency department for worsening shortness of breath, she states that she was having asthma attacks at home. She progressively more short of breath and called EMS. She was found to be positive for COVID-19. She was tachycardic on admission, EKG and rhythm strips reveals ventricular tachycardia. She was initially given Verapamil total IV 7.5 mg, with no improvement. She was then given 6 mg and 12 mg of adenosine. And then started on Cardizem drip. Her heart rates have improved. Sinus rhythm HR 90s-100s. Her breathing has improved. She denies any chest pain, lightheadedness, dizziness, syncope or near syncope. She denies a cough, fever, chills, night sweats, decreased appetite. She denies any history of hypertension, CAD, hyperlipidemia, diabetes. Family history includes her family has a history of hypertension and diabetes. She denies any tobacco use. Physical examination on discharge: General: non toxic, no distress, appears at stated age Derm: warm, dry Head: atraumatic, normocephalic, symmetric Eyes: EOMI, no lid lag, anicteric sclera Mouth: no lip lesion, mucus membranes moist Cardiovascular: S1S2 slightly tachycardic, no murmur, positive posterior tibial pulse bilateral, Lungs: CTA bilateral, no rhonchi, no rales , no accessory muscle use Abdominal: soft, nontender to palpation, no guarding, no appreciable organomegaly Ext: no gross muscle atrophy, no edema, no contractures Neuro: CN II-XI grossly intact, no focal neuro deficits Psych: Alert, oriented, appropriate affect Hospital course: #Acute asthma exacerbation secondary to COVID 19 infection -Patient in room air -Chest x-ray negative for pneumonia -Resume IV steroid -Bronchodilator treatments -Pulmonary recommended prednisone taper with inhaled steroid and agitated this Inhaler -Pulmonary cleared the patient for discharge #Sinus tachycardia/SVT -Resolved -Per cardiology note no evidence of atrial flutter. -2-D echo showed EF 55-60% no significant wall motion abnormality trace mitral regurgitation, trace tricuspid regurgitation. -Cardiology DC'd Cardizem -Cardiology signed off Time spent in discharge process 35 minutes. Patient Condition at Discharge: Stable Plan - Discharge Summary Discharge Rx Participant: Yes New Discharge Prescriptions: New Albuterol Sulfate [Proair Hfa] 1 - 2 puff INHALATION Q6HR PRN 30 Days #8.5 gm PRN Reason: Shortness Of Breath Albuterol Nebulized [Ventolin Nebulized] 2.5 mg INHALATION Q4H 30 Days ml predniSONE See Taper PO DAILY #30 tab Budesonide-Formot 160-4.5 Mcg [Symbicort 160-4.5 Mcg Inhaler] 2 puff INHALATION BID 30 Days #10.2 gm Continue Elinest 0.3-30mg-Mcg Tab 1 tab PO DAILY Discharge Medication List Elinest 0.3-30mg-Mcg Tab 1 tab PO DAILY 08/06/21 [History] Albuterol Nebulized [Ventolin Nebulized] 2.5 mg INHALATION Q4H 30 Days ml 08/08/21 [Rx] Albuterol Sulfate [Proair Hfa] 1 - 2 puff INHALATION Q6HR PRN 30 Days #8.5 gm 08/08/21 [Rx] Budesonide-Formot 160-4.5 Mcg [Symbicort 160-4.5 Mcg Inhaler] 2 puff INHALATION BID 30 Days #10.2 gm 08/08/21 [Rx] predniSONE See Taper PO DAILY #30 tab 08/08/21 [Rx] Follow up Appointment(s)/Referral(s): Osman Boggs MD [Primary Care Provider] - 1-2 days (Offices are closed at this time. Please call to make a post hospital follow up appointment.) Micheal Muñoz MD [STAFF PHYSICIAN] - 1 Week (Offices are closed at this time. Please call to make a post hospital follow up appointment.) Patient Instructions/Handouts: Asthma (DC), COVID-19 (Coronavirus Disease 2019) (DC) Discharge Disposition: HOME SELF-CARE
== END 2021-08-08 12:39 | disposition home or self-care (01) | DRG 178 ==
LOC: EC 19:47 → 3SCARD 22:13
PROVIDERS: ADMIT Internal Medicine; ATTEND Internal Medicine
DX: U07.1 COVID-19 (principal); J45.21 Mild intermittent asthma with (acute) exacerbation; I47.2 Ventricular tachycardia; E87.2 Acidosis; E87.1 Hypo-osmolality and hyponatremia; I47.1 Supraventricular tachycardia; F41.0 Panic disorder [episodic paroxysmal anxiety]; R01.1 Cardiac murmur, unspecified; Z88.0 Allergy status to penicillin
CPT/HCPCS: 36415; 71045; 80053; 81001; 83605; 83615; 83735; 84443; 84484; 85025; 85379; 85610; 85730; 86140; 87040; 87502; 87635; 93005; 93306; 94640; 94760; 96365; 96366; 96367; 96375; 96376; 99291

== ENCOUNTER 2021-11-17 22:07 | Emergency (ER) | payer BC ==
[2021-11-17 22:16] VITALS: BP 150/97; RESP 20; TEMP 98.4
[2021-11-17] MEDS ORDERED: methylPREDNISolone SOD SUCCI 125 MG/2 ML VIAL IM ONE (22:36)
[2021-11-17] MEDS ORDERED: FAMOTIDINE 20 MG TAB PO STA (22:36)
[2021-11-17] MEDS ORDERED: diphenhydrAMINE 25 MG CAP PO STA (22:36)
--- NOTE | 2021-11-17 22:54 | ED ---
General Adult HPI - General Chief complaint: Allergic Reaction Stated complaint: Unknown allergic reaction Time Seen by Provider: 11/17/21 22:22 Source: patient, RN notes reviewed, old records reviewed Mode of arrival: ambulatory Limitations: no limitations - History of Present Illness Initial comments: Patient is a 26-year-old female with past medical history remarkable for asthma who presents in the department over concern for ALLERGIC reaction. No known ALLERGIES except for penicillin. Unknown cause for current ALLERGIC reaction. Started approximately 1 hour prior to arrival. States she began breaking out in hives all over her body. States they're itchy. States she may have had a scratchy throat as well. No difficulty swallowing. Denies any nausea or vomiting. Denies any wheezing. Denies any shortness of breath. Denies any chest pain. Has no abdominal pain. No other acute complaints at this time. Took 25 mgs of Benadryl at home with mild improvement. Presents for further evaluation at this time. Unknown cause for her current ALLERGIC reaction, and she states that she was watching TV at home when it suddenly came on. - Related Data Home Medications Medication Instructions Recorded Confirmed Elinest 0.3-30mg-Mcg Tab 1 tab PO DAILY 08/06/21 08/06/21 Previous Rx's Medication Instructions Recorded Albuterol Nebulized [Ventolin 2.5 mg INHALATION Q4H 30 Days ml 08/08/21 Nebulized] Albuterol Sulfate [Proair Hfa] 1 - 2 puff INHALATION Q6HR PRN 30 08/08/21 Days #8.5 gm Budesonide-Formot 160-4.5 Mcg 2 puff INHALATION BID 30 Days 08/08/21 [Symbicort 160-4.5 Mcg Inhaler] #10.2 gm predniSONE See Taper PO DAILY #30 tab 08/08/21 Famotidine [Pepcid] 20 mg PO DAILY 14 Days #14 tablet 11/17/21 predniSONE [Deltasone] 20 mg PO DAILY 5 Days #5 tab 11/17/21 Allergies Allergy/AdvReac Type Severity Reaction Status Date / Time Penicillins Allergy Rash/Hives Verified 08/06/21 22:26 Review of Systems ROS Statement: Those systems with pertinent positive or pertinent negative responses have been documented in the HPI. Review of Systems: CONST: Denies fever EYES: Denies blurry vision ENT: Denies nasal congestion C/V: Denies Chest pain RESP: Denies shortness of breath GI: Denies abdominal pain : Denies dysuria SKIN: Endorses hives MSK: Denies joint pain. NEURO: Denies headache ROS Other: All systems not noted in ROS Statement are negative. Past Medical History Past Medical History: Asthma Additional Past Medical History / Comment(s): asthma, bronchitis, heart murmur History of Any Multi-Drug Resistant Organisms: None Reported Past Surgical History: No Surgical Hx Reported Past Psychological History: Anxiety Smoking Status: Former smoker Past Alcohol Use History: None Reported Past Drug Use History: None Reported - Past Family History Father Family Medical History: Diabetes Mellitus, Hypertension Mother Family Medical History: Diabetes Mellitus, Hypertension Additional Family Medical History / Comment(s): Thyroidectomy Family Family Medical History: No Reported History General Exam - General Exam Comments Initial Comments: General: Appears in no acute distress. HEAD: Normal with no signs of head trauma. EYES: PERRLA, EOMI, conjunctiva normal, no discharge. ENT: Hearing grossly intact, normal oropharynx. Uvula is midline. No tongue swelling. No stridor auscultated. RESPIRATORY: Clear breath sounds bilaterally. No wheezes, rales, or rhonchi. No hypoxia. No increased work of breathing. C/V: Tachycardia with regular rhythm. S1 and S2 auscultated, no edema, peripheral pulses 2+ and intact throughout ABD: Abd is soft, nontender, nondistended EXT: Normal range of motion, no obvious deformity SKIN: Patient has hives located over bilateral arms, trunk, neck. NEURO: Alert and oriented 4. No focal deficits. Limitations: no limitations Course Vital Signs 11/17/21 11/17/21 11/17/21 22:13 22:32 22:33 Temperature 98.4 F Pulse Rate 121 H 123 H 110 H Respiratory 20 Rate Blood Pressure 150/97 O2 Sat by Pulse 98 99 Oximetry Medical Decision Making - Medical Decision Making Based on patient's presentation and physical exam, I do believe she is screaming seen in ALLERGIC reaction. Does not appear to be having an anaphylactic reaction at this time. Patient will continue to be monitored. She'll be administered IM steroids, as well as additional Benadryl and famotidine. She was in agreement this plan. We'll closely monitor the patient for at least one hour here in the department. Vital signs are within acceptable limits. No respiratory distress. Blood pressure within normal limits. Patient is reevaluated multiple times. She was observed for a period longer than one hour here in the department. She is no respiratory symptoms. Vital signs remained within normal limits. Rash has improved. No stridor. No wheezing. No hypoxia. She would like to go home. I believe this reasonable. Patient does have a heart monitor on due to recurrent episodes of SVT. She does seem to have a localized skin dermatitis underneath the adhesive patch for it, and I recommended talking with the acid polymerization operator see if there is a another option for attaching the monitor. There were agreement with this plan. I will provide the patient with a prescription for prednisone, famotidine. I instructed the patient to follow up with their PCP in the next 1-3 days. I explained that the patient should return to the emergency department if they experience any worsening symptoms. Strict return precautions were discussed with the patient. The patient expressed understanding of these instructions. I answered all questions that the patient had. The patient was discharged home in good condition with their prescriptions and follow up information. Disposition Clinical Impression: Allergic reaction Disposition: HOME SELF-CARE Condition: Good Instructions (If sedation given, give patient instructions): Allergies (ED) Prescriptions: predniSONE [Deltasone] 20 mg PO DAILY 5 Days #5 tab Famotidine [Pepcid] 20 mg PO DAILY 14 Days #14 tablet Is patient prescribed a controlled substance at d/c from ED?: No Referrals: Osman Boggs MD [Primary Care Provider] - 1-2 days Time of Disposition: 23:45
[2021-11-17 23:49] VITALS: PULSE 87
== END 2021-11-17 23:53 | disposition home or self-care (01) ==
LOC: EC 22:07
DX: L29.9 Pruritus, unspecified (principal); T78.40XA Allergy, unspecified, initial encounter; Z88.0 Allergy status to penicillin; Z87.891 Personal history of nicotine dependence
CPT/HCPCS: 99283; 96372; J2930

== ENCOUNTER 2023-10-07 19:52 | Emergency (ER) | payer BC ==
[2023-10-07 20:00] VITALS: TEMP 98.6
--- NOTE | 2023-10-07 21:01 | XR ---
EXAMINATION TYPE: XR chest 2V DATE OF EXAM: 10/07/2023 8:56 PM CLINICAL INDICATION: Female, 28 years old with history of dysrhythmia; COMPARISON: Chest radiographs from 08/06/2021 TECHNIQUE: XR chest 2V Frontal view of the chest. FINDINGS: Lungs/Pleura: There is no evidence of pleural effusion, focal consolidation, or pneumothorax. Pulmonary vascularity: Unremarkable. Heart/mediastinum: Cardiomediastinal silhouette is unremarkable. Musculoskeletal: No acute osseous pathology. IMPRESSION: No acute cardiopulmonary disease/process.
[2023-10-07] MEDS: SODIUM CHLORIDE 0.9% 500 ML 500 ML IV STA (21:02)
[2023-10-07] MEDS: SODIUM CHLORIDE 0.9% 1,000 ML IV STA (21:02)
[2023-10-07 21:04] LABS: Basophils % (A) 0 %; Eosinophils # (A) 0.2 k/uL (0-0.7); Eosinophils % (A) 3 %; HCT 44.2 % (34.0-46.0); HGB 14.7 gm/dL (11.4-16.0); Lymphocytes # (A) 0.8 k/uL (1.0-4.8); Lymphocytes % (A) 10 %; MCH 29.6 pg (25.0-35.0); MCHC 33.1 g/dL (31.0-37.0); MCV 89.3 fL (80.0-100.0); Mean Platelet Volume 8.4; Monocytes # (A) 0.5 k/uL (0-1.0); Monocytes % (A) 6 %; Neutrophils % (A) 81 %; Platelet Count 367 k/uL (150-450); RBC 4.95 m/uL (3.80-5.40); RDW 12.8 % (11.5-15.5); WBC 8.6 k/uL (3.8-10.6)
--- NOTE | 2023-10-07 21:13 | ED ---
Arrhythmia/Palpitations HPI - General Chief Complaint: Arrhythmia/Palpitations Stated Complaint: Elevated heart rate Time Seen by Provider: 10/07/23 20:00 Source: patient, EMS Mode of arrival: EMS - History of Present Illness Initial Comments: 28-year-old female presents emergency department with rapid heart rate. States that she did not feel well this morning and took a COVID test. She was COVID- positive. States that the last time she had COVID she had tachycardia. Patient required hospitalization on a Cardizem drip. When she felt her heart racing this evening she decided to call EMS. She does admit to a cough and bodyaches. Patient has had fevers. No chest pain. She currently takes Lexapro which was prescribed by her solar applications development engineer for her palpitations. She follows with a solar applications development engineer at [facility]. Patient denies concern for . No other alleviating, precipitating modifying factors - Related Data Previous Rx's Medication Instructions Recorded Propranolol [Inderal] 20 mg PO TID PRN #30 tab 10/07/23 Allergies Allergy/AdvReac Type Severity Reaction Status Date / Time Penicillins Allergy Rash/Hives Verified 10/07/23 20:15 Review of Systems ROS Statement: Those systems with pertinent positive or pertinent negative responses have been documented in the HPI. ROS Other: All systems not noted in ROS Statement are negative. Past Medical History Past Medical History: Asthma Additional Past Medical History / Comment(s): asthma, bronchitis, heart murmur History of Any Multi-Drug Resistant Organisms: None Reported Past Surgical History: No Surgical Hx Reported Past Psychological History: Anxiety Smoking Status: Former smoker Past Alcohol Use History: None Reported Past Drug Use History: None Reported - Past Family History Father Family Medical History: Diabetes Mellitus, Hypertension Mother Family Medical History: Diabetes Mellitus, Hypertension Additional Family Medical History / Comment(s): Thyroidectomy Family Family Medical History: No Reported History General Exam General appearance: alert, in no apparent distress Head exam: Present: atraumatic, normocephalic, normal inspection Eye exam: Present: normal appearance, PERRL, EOMI. Absent: scleral icterus, conjunctival injection, periorbital swelling ENT exam: Present: normal exam, mucous membranes moist Neck exam: Present: normal inspection. Absent: tenderness, meningismus, lymphadenopathy Respiratory exam: Present: normal lung sounds bilaterally. Absent: respiratory distress, wheezes, rales, rhonchi, stridor Cardiovascular Exam: Present: normal rhythm, tachycardia, normal heart sounds. Absent: systolic murmur, diastolic murmur, rubs, gallop, clicks GI/Abdominal exam: Present: soft, normal bowel sounds. Absent: distended, tenderness, guarding, rebound, rigid Extremities exam: Present: normal inspection, full ROM, normal capillary refill. Absent: tenderness, pedal edema, joint swelling, calf tenderness Back exam: Present: normal inspection Neurological exam: Present: alert, oriented X3, CN II-XII intact Psychiatric exam: Present: normal affect, normal mood Skin exam: Present: warm, dry, intact, normal color. Absent: rash Course Vital Signs 10/07/23 10/07/23 19:56 23:12 Temperature 98.6 F Pulse Rate 129 H 110 H Respiratory 19 17 Rate Blood Pressure 150/106 143/93 O2 Sat by Pulse 98 100 Oximetry Medical Decision Making - Medical Decision Making Was pt. sent in by a medical professional or institution (, PA, TERMITE INSPECTOR, urgent care, hospital, or senior living...) When possible be specific @ -No Did you speak to anyone other than the patient for history (EMS, parent, family, police, friend...)? What history was obtained from this source @ -Spoke with EMS for history Did you review nursing and triage notes (agree or disagree)? Why? @ -I reviewed and agree with nursing and triage notes Were old charts reviewed (outside hosp., previous admission, EMS record, old EKG, old radiological studies, urgent care reports/EKG's, senior living records)? Report findings @ -No old charts were reviewed Differential Diagnosis (chest pain, altered mental status, abdominal pain women, abdominal pain men, vaginal bleeding, weakness, fever, dyspnea, syncope, headache, dizziness, GI bleed, back pain, seizure, CVA, palpatations, mental health, musculoskeletal)? @ -Differential Palpitations Ventricular arrhythmias, atrial arrhythmias, myocardial infarction, anemia, thyrotoxicosis, electrolyte imbalance, hypokalemia, pulmonary embolism, pulmonary disease, drugs, alcohol, anxiety, stress.... This is not meant to be an all-inclusive list. EKG interpreted by me (3pts min.). @ -Yes and demonstrates sinus tachycardia with a rate of 130. MO interval 143. QRS 76. QTc of 410. No acute ST segment elevations or depressions X-rays interpreted by me (1pt min.). @ -Yes and demonstrates no acute process CT interpreted by me (1pt min.). @ -None done U/S interpreted by me (1pt. min.). @ -None done What testing was considered but not performed or refused? (CT, X-rays, U/S, labs )? Why? @ -None What meds were considered but not given or refused? Why? @ -None Did you discuss the management of the patient with other professionals (professionals i.e. , PA, TERMITE INSPECTOR, lab, RT, psych nurse, social insurance analyst, senior research fellow, teacher, radio officer, complex case manager)? Give summary @ -No Was smoking cessation discussed for >3mins.? @ -No Was critical care preformed (if so, how long)? @ -No Were there social determinants of health that impacted care today? How? (Homelessness, low income, unemployed, alcoholism, drug addiction, transportation, low edu. Level, literacy, decrease access to med. care, nursing home, rehab)? @ -No Was there de-escalation of care discussed even if they declined (Discuss DNR or withdrawal of care, Hospice)? DNR status @ -No What co-morbidities impacted this encounter? (DM, HTN, Smoking, COPD, CAD, Cancer, CVA, ARF, Chemo, Hep., AIDS, mental health diagnosis, sleep apnea, morbid obesity)? @ -None Was patient admitted / discharged? Hospital course, mention meds given and route, prescriptions, significant lab abnormalities, going to OR and other pertinent info. @ -Upon arrival patient seen and evaluated in room 3. Thorough history and physical exam was performed. She is placed on cardiac monitoring. IV is established. Laboratory studies are conducted. Patient given intravenous fluid with improvement in her heart rate to less than 100. I did discuss diagnosis, and informed treatment options. Patient currently has nothing on hand to take when her heart rate goes high. I did give her a prescription for propranolol which she may take when she feels an elevation in her heart rate. I did recommend that she follow-up with a new solar applications development engineer for further management as she is unsatisfied with her previous solar applications development engineer. Patient agreeable to this an d was discharged in stable condition Undiagnosed new problem with uncertain prognosis? @ -No Drug Therapy requiring intensive monitoring for toxicity (Heparin, Nitro, Insulin, Cardizem)? @ -No Were any procedures done? @ -No Diagnosis/symptom? @ -Acute palpitations, sinus tachycardia, COVID infection, history of SVT Acute, or Chronic, or Acute on Chronic? @ -Acute Uncomplicated (without systemic symptoms) or Complicated (systemic symptoms)? @ -Complicated Side effects of treatment? @ -No Exacerbation, Progression, or Severe Exacerbation? @ -No Poses a threat to life or bodily function? How? (Chest pain, [place], [place], pneumonia, PE, COPD, DKA, ARF, appy, cholecystitis, CVA, Diverticulitis, Homicidal, Suicidal, threat to staff... and all critical care pts) @ -No - Lab Data Result diagrams: 10/07/23 20:46 10/07/23 20:46 Lab Results 10/07/23 10/07/23 10/07/23 Range/Units 20:05 20:46 20:46 WBC 8.6 (3.8-10.6) k/uL RBC 4.95 (3.80-5.40) m/uL Hgb 14.7 (11.4-16.0) gm/dL Hct 44.2 (34.0-46.0) % MCV 89.3 (80.0-100.0) fL MCH 29.6 (25.0-35.0) pg MCHC 33.1 (31.0-37.0) g/dL RDW 12.8 (11.5-15.5) % Plt Count 367 (150-450) k/uL MPV 8.4 Neutrophils % 81 % Lymphocytes % 10 % Monocytes % 6 % Eosinophils % 3 % Basophils % 0 % Neutrophils # 7.0 (1.3-7.7) k/uL Lymphocytes # 0.8 L (1.0-4.8) k/uL Monocytes # 0.5 (0-1.0) k/uL Eosinophils # 0.2 (0-0.7) k/uL Basophils # 0.0 (0-0.2) k/uL Sodium 136 L (137-145) mmol/L Potassium 4.9 (3.5-5.1) mmol/L Chloride 105 (98-107) mmol/L Carbon Dioxide 23 (22-30) mmol/L Anion Gap 8 mmol/L BUN 9 (7-17) mg/dL Creatinine 0.62 (0.52-1.04) mg/dL Est GFR (CKD-EPI)AfAm >90 (>60 ml/min/1.73 sqM) Est GFR (CKD-EPI)NonAf >90 (>60 ml/min/1.73 sqM) Glucose 133 H (74-99) mg/dL Calcium 9.6 (8.4-10.2) mg/dL Magnesium 1.9 (1.6-2.3) mg/dL Total Bilirubin 0.8 (0.2-1.3) mg/dL AST 35 (14-36) U/L ALT 25 (4-34) U/L Alkaline Phosphatase 98 (38-126) U/L Troponin I (0.000-0.034) ng/mL Total Protein 7.3 (6.3-8.2) g/dL Albumin 4.7 (3.5-5.0) g/dL TSH 0.666 (0.465-4.680) mIU/L 10/07/23 Range/Units 22:26 WBC (3.8-10.6) k/uL RBC (3.80-5.40) m/uL Hgb (11.4-16.0) gm/dL Hct (34.0-46.0) % MCV (80.0-100.0) fL MCH (25.0-35.0) pg MCHC (31.0-37.0) g/dL RDW (11.5-15.5) % Plt Count (150-450) k/uL MPV Neutrophils % % Lymphocytes % % Monocytes % % Eosinophils % % Basophils % % Neutrophils # (1.3-7.7) k/uL Lymphocytes # (1.0-4.8) k/uL Monocytes # (0-1.0) k/uL Eosinophils # (0-0.7) k/uL Basophils # (0-0.2) k/uL Sodium (137-145) mmol/L Potassium (3.5-5.1) mmol/L Chloride (98-107) mmol/L Carbon Dioxide (22-30) mmol/L Anion Gap mmol/L BUN (7-17) mg/dL Creatinine (0.52-1.04) mg/dL Est GFR (CKD-EPI)AfAm (>60 ml/min/1.73 sqM) Est GFR (CKD-EPI)NonAf (>60 ml/min/1.73 sqM) Glucose (74-99) mg/dL Calcium (8.4-10.2) mg/dL Magnesium (1.6-2.3) mg/dL Total Bilirubin (0.2-1.3) mg/dL AST (14-36) U/L ALT (4-34) U/L Alkaline Phosphatase (38-126) U/L Troponin I <0.012 (0.000-0.034) ng/mL Total Protein (6.3-8.2) g/dL Albumin (3.5-5.0) g/dL TSH (0.465-4.680) mIU/L Disposition Clinical Impression: COVID-19, Palpitations, Sinus tachycardia Disposition: HOME SELF-CARE Condition: Stable Instructions (If sedation given, give patient instructions): Tachycardia (ED), COVID-19 (Coronavirus Disease 2019) (ED) Additional Instructions: Please take the propranolol as needed for any elevated heart rate and follow-up with one of the recommended heart doctors. Dr. Collins and Dr. Martin are executive assistant. Dr. Aguilar is a regular solar applications development engineer. New or worsening symptoms Prescriptions: Propranolol [Inderal] 20 mg PO TID PRN #30 tab PRN Reason: Tachyarrhythmias Is patient prescribed a controlled substance at d/c from ED?: No Referrals: None,Stated [Primary Care Provider] - 1-2 days Time of Disposition: 23:05
[2023-10-07 21:19] LABS: ALT 25 U/L (4-34); African American GFR (CKD) >90 (>60 ml/min/1.73 sqM); Albumin 4.7 g/dL (3.5-5.0); Anion Gap 8 mmol/L; Blood Urea Nitrogen 9 mg/dL (7-17); Calcium 9.6 mg/dL (8.4-10.2); Carbon Dioxide 23 mmol/L (22-30); Chloride 105 mmol/L (98-107); Glucose 133 mg/dL (74-99); Non-African American GFR(CKD) >90 (>60 ml/min/1.73 sqM); Sodium 136 mmol/L (137-145); Total Bilirubin 0.8 mg/dL (0.2-1.3); Total Protein 7.3 g/dL (6.3-8.2)
[2023-10-07 21:45] LABS: Potassium 4.9 mmol/L (3.5-5.1)
[2023-10-07 21:46] LABS: AST 35 U/L (14-36); Alkaline Phosphatase 98 U/L (38-126); Magnesium 1.9 mg/dL (1.6-2.3)
[2023-10-07] MEDS: SODIUM CHLORIDE 0.9% 1,000 ML IV ONE (22:42)
[2023-10-07 23:14] VITALS: BP 143/93; PULSE 110; RESP 17
== END 2023-10-07 23:15 | disposition home or self-care (01) ==
LOC: EC 19:52
DX: R00.2 Palpitations
CPT/HCPCS: 36415; 71046; 80053; 83735; 84443; 84484; 85025; 93005; 96360; 96361; 99285

== ENCOUNTER → 2024-01-23 | Outpatient (CLI) | payer OTHER ==
--- NOTE | 2024-01-23 12:15 | XR ---
EXAMINATION TYPE: XR lumbosacral spine min 4V DATE OF EXAM: 01/23/2024 12:01 PM COMPARISON: None. CLINICAL INDICATION: Female, 28 years old with history of S39.012A back pain/injury, TECHNIQUE: Frontal, lateral, and oblique images of the lumbar spine are obtained. FINDINGS: There are 5 lumbar type vertebral bodies identified. The lumbar spine shows satisfactory alignment without evidence of acute fracture or dislocation. Vertebral body heights are within normal limits. Disc spaces are well preserved. The overlying soft tissue appears unremarkable. IMPRESSION: No acute fracture or dislocation is seen in the lumbar spine.ICD 10 NO FRACTURE, INITIAL EVALUATION [facility], , 01/23/2024 12:13 PM
== END | disposition home or self-care (01) ==
LOC: RADXRMAIN 11:42
PROVIDERS: ATTEND Emergency Medicine
DX: S39.012A Strain of muscle, fascia and tendon of lower back, initial encounter (principal); X58.XXXA Exposure to other specified factors, initial encounter
CPT/HCPCS: 72110

== ENCOUNTER 2024-05-26 19:35 | Emergency (ER) | payer BC, OTHER ==
[2024-05-26 19:41] VITALS: TEMP 98.3
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
[2024-05-26 21:32] VITALS: BP 150/90; PULSE 93; RESP 16
== END 2024-05-26 21:20 | disposition home or self-care (01) ==
LOC: EC 19:35
DX: Z04.1 Encounter for examination and observation following transport accident (principal); M79.10 Myalgia, unspecified site; Z88.0 Allergy status to penicillin; Z87.891 Personal history of nicotine dependence
CPT/HCPCS: 99283